=== PATIENT | female | born 1975 | race Caucasian/White ===

== ENCOUNTER 2020-09-22 03:03 | Emergency (ER) | payer OTHER ==
[2020-09-22 06:11] LABS: HEMOGLOBIN 13.3 gm/dl (12.3-15.3); RED BLOOD COUNT 4.14 M/UL (4.00-5.10); WHITE BLOOD COUNT 9.8 K/UL (4.5-11.0)
[2020-09-22 06:48] LABS: BUN/CREATININE RATIO 15 (0-10)
== END 2020-09-22 07:13 | disposition home or self-care (01) ==
LOC: ER1 03:03
PROVIDERS: Family Medicine
DX: M79.661 Pain in right lower leg (principal); M79.662 Pain in left lower leg; R06.00 Dyspnea, unspecified; F17.290 Nicotine dependence, other tobacco product, uncomplicated; Z88.5 Allergy status to narcotic agent
CPT/HCPCS: 71045; 80053; 82550; 82553; 83874; 83880; 84484; 85025; 93005; 99284